=== PATIENT | female | born 1955 | race Caucasian/White ===

== ENCOUNTER 2018-07-13 14:44 | Inpatient (IN) | payer OTHER ==
[~2018-07-13] VITALS: Ht 160 cm; Wt 67.6 kg
[2018-07-13] MEDS ORDERED: OXYC-150 PO (16:59)
[2018-07-13] MEDS ORDERED: ALPR-623 PO (16:59)
[2018-07-13] MEDS ORDERED: CHLO25CA10 PO (16:59)
[2018-07-13] MEDS ORDERED: FLUT16SP2 BOTHNARES (16:59)
[2018-07-13] MEDS ORDERED: ESCI10TA54 PO (16:59)
[2018-07-13] MEDS ORDERED: oxyCODONE/APAP 10/325mg tablet PO PRN (17:15)
[2018-07-13] MEDS ORDERED: ondansetron 4mg rapidly disintigrating tab PO PRN (17:35)
[2018-07-13 17:47] VITALS: BP 138/93
[2018-07-13] MEDS ORDERED: acetaminophen 325mg tablet PO PRN (18:00)
[2018-07-13] MEDS ORDERED: magnesium hydroxide 30ml (MOM) UD suspension PO PRN (18:00)
[2018-07-13] MEDS ORDERED: mag hydrox/Alum hydrox/simeth 30ml oral suspension PO PRN (18:00)
[2018-07-13] MEDS ORDERED: SUMAtriptan 25 MG tablet PO PRN (18:20)
[2018-07-13] MEDS ORDERED: MAXALT PO PRN (18:25)
[2018-07-13] MEDS ORDERED: ALPRAZolam 0.5mg tablet PO ONE (18:30)
[2018-07-13] MEDS ORDERED: pneumococcal 23-VAL P-sac vacc 25 mcg/0.5ml vial IMVAC ONE (20:00)
[2018-07-13 20:47] VITALS: BP 137/94
[2018-07-13] MEDS: ALPRAZolam 0.25mg tablet PO SCH (20:55)
[2018-07-13] MEDS: oxyCODONE IR 5mg (immed. release) tablet PO PRN (20:56)
[2018-07-13] MEDS: fluticasone nasal spray 16GM bottle NS SCH (21:15)
[2018-07-13] MEDS: chlordiazePOXIDE 25mg capsule PO PRN (23:56)
[2018-07-14] MEDS: oxyCODONE IR 5mg (immed. release) tablet PO PRN ×2 (03:02→15:09)
[2018-07-14] MEDS: ALPRAZolam 0.25mg tablet PO SCH ×3 (07:41→21:14)
[2018-07-14] MEDS: fluticasone nasal spray 16GM bottle NS SCH ×2 (07:41→08:00)
[2018-07-14] MEDS: citalopram 20mg tablet PO SCH (07:41)
[2018-07-14] MEDS: duloxetine 30mg CAPSULE.DR PO SCH (07:42)
[2018-07-14 08:00] VITALS: BP 137/94
[2018-07-14] MEDS ORDERED: citalopram 20mg tablet PO SCH (08:00)
[2018-07-14 08:59] LABS: HEMOGLOBIN A1C 5.7 % (4.5-6.2)
[2018-07-14] MEDS: chlordiazePOXIDE 25mg capsule PO PRN (10:21)
[2018-07-14 11:00] LABS: CHOL/HDL RATIO 3.5 (0.00-4.99); CHOLESTEROL 197 MG/DL (0-200); HDL CHOLESTEROL 56 MG/DL (35-60); LDL CHOLESTEROL 123 MG/DL (50-100); TRIGLYCERIDES 85 MG/DL (20-135)
[2018-07-14] MEDS: SUMAtriptan 25 MG tablet PO PRN (12:11)
[2018-07-14] MEDS ORDERED: oxyCODONE IR 5mg (immed. release) tablet PO PRN (17:20)
[2018-07-14 19:00] VITALS: BP 129/72
[2018-07-14] MEDS: traZODone 50mg tablet PO SCH (21:14)
[2018-07-14] MEDS: oxyCODONE IR 5mg (immed. release) tablet PO SCH (23:15)
[2018-07-15] MEDS: oxyCODONE IR 5mg (immed. release) tablet PO SCH ×3 (01:23→20:41)
[2018-07-15] MEDS: fluticasone nasal spray 16GM bottle NS SCH ×2 (07:59→20:40)
[2018-07-15] MEDS: duloxetine 30mg CAPSULE.DR PO SCH (07:59)
[2018-07-15 08:00] VITALS: BP 117/73
[2018-07-15] MEDS: ALPRAZolam 0.25mg tablet PO SCH ×3 (08:00→20:40)
[2018-07-15] MEDS: citalopram 20mg tablet PO SCH (08:00)
[2018-07-15 19:00] VITALS: BP 129/80
[2018-07-15] MEDS: traZODone 50mg tablet PO SCH (20:40)
[2018-07-16] MEDS: cloNIDine 0.1 mg tablet PO PRN ×3 (03:45→21:07)
[2018-07-16] MEDS: oxyCODONE IR 5mg (immed. release) tablet PO PRN ×2 (05:54→22:27)
[2018-07-16] MEDS: duloxetine 30mg CAPSULE.DR PO SCH (07:51)
[2018-07-16] MEDS: fluticasone nasal spray 16GM bottle NS SCH ×2 (07:51→20:00)
[2018-07-16] MEDS: citalopram 20mg tablet PO SCH (07:51)
[2018-07-16] MEDS: ALPRAZolam 0.25mg tablet PO SCH ×3 (07:52→21:02)
[2018-07-16 08:00] VITALS: BP 100/65
[2018-07-16] MEDS: oxyCODONE IR 5mg (immed. release) tablet PO SCH ×3 (08:00→21:03)
[2018-07-16 19:00] VITALS: BP 106/69
[2018-07-16] MEDS: traZODone 50mg tablet PO SCH (21:02)
[2018-07-17] MEDS: ALPRAZolam 0.25mg tablet PO SCH ×2 (07:40→12:38)
[2018-07-17] MEDS: duloxetine 30mg CAPSULE.DR PO SCH (07:41)
[2018-07-17] MEDS: citalopram 20mg tablet PO SCH (07:41)
[2018-07-17] MEDS: cloNIDine 0.1 mg tablet PO PRN (07:41)
[2018-07-17] MEDS: oxyCODONE IR 5mg (immed. release) tablet PO SCH ×2 (07:45→20:51)
[2018-07-17 08:00] VITALS: BP 113/72
[2018-07-17] MEDS: fluticasone nasal spray 16GM bottle NS SCH ×2 (08:00→20:50)
[2018-07-17 19:55] VITALS: BP 117/56
[2018-07-17] MEDS: ALPRAZolam 0.5mg tablet PO SCH (20:50)
[2018-07-17] MEDS ORDERED: traZODone 50mg tablet PO SCH (21:00)
[2018-07-18] MEDS: hydrOXYzine 25 MG tablet PO PRN ×2 (00:27→23:14)
[2018-07-18 08:00] VITALS: BP 108/71
[2018-07-18] MEDS: oxyCODONE IR 5mg (immed. release) tablet PO SCH ×2 (08:00→20:59)
[2018-07-18] MEDS: ALPRAZolam 0.5mg tablet PO SCH ×2 (08:00→20:00)
[2018-07-18] MEDS: duloxetine 30mg CAPSULE.DR PO SCH (08:14)
[2018-07-18] MEDS: citalopram 20mg tablet PO SCH (08:17)
[2018-07-18] MEDS: fluticasone nasal spray 16GM bottle NS SCH ×2 (08:18→20:51)
[2018-07-18] MEDS: acetaminophen 325mg tablet PO PRN (12:19)
[2018-07-18] MEDS: ALPRAZolam 0.25mg tablet PO SCH (13:00)
[2018-07-18 19:55] VITALS: BP 138/89
[2018-07-18] MEDS ORDERED: traZODone 150mg tablet PO SCH (21:00)
[2018-07-19] MEDS: oxyCODONE IR 5mg (immed. release) tablet PO PRN (00:37)
[2018-07-19] MEDS: citalopram 20mg tablet PO SCH (07:41)
[2018-07-19] MEDS: duloxetine 30mg CAPSULE.DR PO SCH (07:41)
[2018-07-19 08:00] VITALS: BP 136/88
[2018-07-19] MEDS: oxyCODONE IR 5mg (immed. release) tablet PO SCH (08:00)
[2018-07-19] MEDS: ALPRAZolam 0.5mg tablet PO SCH (08:00)
[2018-07-19] MEDS: fluticasone nasal spray 16GM bottle NS SCH ×2 (08:00→20:48)
[2018-07-19] MEDS: acetaminophen 325mg tablet PO PRN ×2 (08:38→20:50)
[2018-07-19] MEDS: ALPRAZolam 0.25mg tablet PO SCH (13:00)
[2018-07-19] MEDS: SUMAtriptan 25 MG tablet PO PRN (14:32)
[2018-07-19 20:00] VITALS: BP 138/87
[2018-07-19 20:30] VITALS: BP 120/84
[2018-07-19] MEDS ORDERED: traZODone 50mg tablet PO SCH (21:00)
[2018-07-20] MEDS: fluticasone nasal spray 16GM bottle NS SCH ×2 (07:58→21:06)
[2018-07-20 07:59] VITALS: BP 126/84
[2018-07-20] MEDS: citalopram 20mg tablet PO SCH (07:59)
[2018-07-20] MEDS: duloxetine 30mg CAPSULE.DR PO SCH (07:59)
[2018-07-20] MEDS: acetaminophen 325mg tablet PO PRN ×2 (08:01→13:55)
[2018-07-20] MEDS: hydrOXYzine 25 MG tablet PO PRN (09:21)
[2018-07-20] MEDS ORDERED: lamoTRIgine 25mg tablet PO ONE (16:10)
[2018-07-20 20:13] VITALS: BP 142/82
[2018-07-20] MEDS: traZODone 50mg tablet PO PRN (21:06)
[2018-07-21] MEDS: hydrOXYzine 25 MG tablet PO PRN (05:54)
[2018-07-21] MEDS ORDERED: lamoTRIgine 25mg tablet PO SCH (08:00)
[2018-07-21] MEDS: citalopram 20mg tablet PO SCH (08:11)
[2018-07-21] MEDS: fluticasone nasal spray 16GM bottle NS SCH ×2 (08:11→21:13)
[2018-07-21] MEDS: duloxetine 30mg CAPSULE.DR PO SCH (08:11)
[2018-07-21 08:13] VITALS: BP 137/91
[2018-07-21] MEDS: acetaminophen 325mg tablet PO PRN ×2 (11:33→21:46)
[2018-07-21] MEDS: SUMAtriptan 25 MG tablet PO PRN (15:26)
[2018-07-21] MEDS: LIDOcaine 5% patch TP SCH (17:32)
[2018-07-21 19:00] VITALS: BP 147/88
[2018-07-21] MEDS ORDERED: diphenhydrAMINE 25mg capsule PO ONE (21:10)
[2018-07-21] MEDS: traZODone 50mg tablet PO PRN (21:13)
[2018-07-21 21:30] VITALS: BP 120/80
[2018-07-22] MEDS: acetaminophen 325mg tablet PO PRN (06:21)
[2018-07-22 07:42] VITALS: BP 146/98
[2018-07-22] MEDS: citalopram 20mg tablet PO SCH (08:09)
[2018-07-22] MEDS: duloxetine 30mg CAPSULE.DR PO SCH (08:09)
[2018-07-22] MEDS: fluticasone nasal spray 16GM bottle NS SCH ×2 (08:09→20:52)
[2018-07-22] MEDS: LIDOcaine 5% patch TP SCH ×2 (09:46→20:53)
[2018-07-22] MEDS: SUMAtriptan 25 MG tablet PO PRN (14:06)
[2018-07-22 19:00] VITALS: BP 157/91
[2018-07-22] MEDS: divalproex sodium 250mg tablet PO SCH (20:52)
[2018-07-22] MEDS: traZODone 50mg tablet PO PRN (21:00)
[2018-07-23] MEDS: acetaminophen 325mg tablet PO PRN ×2 (00:22→15:54)
[2018-07-23] MEDS: SUMAtriptan 25 MG tablet PO PRN ×3 (05:15→19:25)
[2018-07-23 08:00] VITALS: BP 145/93
[2018-07-23] MEDS: duloxetine 30mg CAPSULE.DR PO SCH (08:08)
[2018-07-23] MEDS: citalopram 20mg tablet PO SCH (08:08)
[2018-07-23] MEDS: divalproex sodium 250mg tablet PO SCH ×2 (08:08→20:34)
[2018-07-23] MEDS: fluticasone nasal spray 16GM bottle NS SCH ×2 (08:08→20:34)
[2018-07-23] MEDS: LIDOcaine 5% patch TP SCH ×2 (08:13→20:33)
[2018-07-23 19:00] VITALS: BP 135/93
[2018-07-23] MEDS: traZODone 50mg tablet PO PRN (20:33)
[2018-07-24] MEDS: SUMAtriptan 25 MG tablet PO PRN ×2 (05:45→20:23)
[2018-07-24] MEDS: divalproex sodium 250mg tablet PO SCH ×2 (07:52→20:24)
[2018-07-24] MEDS: fluticasone nasal spray 16GM bottle NS SCH ×2 (07:53→20:24)
[2018-07-24] MEDS: duloxetine 30mg CAPSULE.DR PO SCH (07:53)
[2018-07-24] MEDS: LIDOcaine 5% patch TP SCH (07:54)
[2018-07-24 08:00] VITALS: BP 137/92
[2018-07-24] MEDS: acetaminophen 325mg tablet PO PRN (13:11)
[2018-07-24] MEDS ORDERED: LIDOcaine 5% patch TP SCH (15:00)
[2018-07-24] MEDS ORDERED: CLON0.1T20 PO (16:18)
[2018-07-24] MEDS ORDERED: DIVA250T4 PO (16:18)
[2018-07-24] MEDS ORDERED: FLUT16SP18 NS (16:18)
[2018-07-24] MEDS ORDERED: TRAZ150T78 PO (16:18)
[2018-07-24] MEDS ORDERED: SUMA25TA9 PO (16:18)
[2018-07-24] MEDS ORDERED: DULO60CA64 PO (16:18)
[2018-07-24] MEDS ORDERED: LIDO700A47 TP (16:19)
[2018-07-24] MEDS ORDERED: ONDA4TAB12 PO (16:19)
[2018-07-24 19:57] VITALS: BP 143/87
[2018-07-24] MEDS: traZODone 50mg tablet PO PRN (20:23)
[2018-07-25 07:39] VITALS: BP 126/57
[2018-07-25] MEDS: duloxetine 30mg CAPSULE.DR PO SCH (08:03)
[2018-07-25] MEDS: fluticasone nasal spray 16GM bottle NS SCH (08:03)
[2018-07-25] MEDS: divalproex sodium 250mg tablet PO SCH (08:04)
[2018-07-25] MEDS: SUMAtriptan 25 MG tablet PO PRN (08:04)
[2018-07-25] MEDS ORDERED: LIDOcaine 5% patch TP SCH (08:15)
[2018-07-25] MEDS ORDERED: FLUT16SP2 BOTHNARES (09:58)
== END 2018-07-25 11:50 | disposition home or self-care (01) | DRG 885 ==
LOC: EDBD → ADULT MH 16:22
PROVIDERS: ADMIT Psychiatry & Neurology Psychiatry; ATTEND Psychiatry & Neurology Psychiatry
PROC: 3E02340 Introduction of Influenza Vaccine into Muscle, Percutaneous Approach (ICD-10-PCS; principal; 2018-07-13)
PROC: 3E0234Z Introduction of Serum, Toxoid and Vaccine into Muscle, Percutaneous Approach (ICD-10-PCS; 2018-07-13)
DX: F33.2 Major depressive disorder, recurrent severe without psychotic features (principal); R45.851 Suicidal ideations; F11.23 Opioid dependence with withdrawal; F13.20 Sedative, hypnotic or anxiolytic dependence, uncomplicated; E11.9 Type 2 diabetes mellitus without complications; J45.909 Unspecified asthma, uncomplicated; I10 Essential (primary) hypertension; B19.20 Unspecified viral hepatitis C without hepatic coma; F41.9 Anxiety disorder, unspecified; G43.909 Migraine, unspecified, not intractable, without status migrainosus; Z79.899 Other long term (current) drug therapy; Z23 Encounter for immunization; Z90.49 Acquired absence of other specified parts of digestive tract; Z88.8 Allergy status to other drugs, medicaments and biological substances; Z81.8 Family history of other mental and behavioral disorders
CPT/HCPCS: 36415; 80061; 83036; 87070; 90732; Q0163; Q0177; Q2037

== ENCOUNTER 2018-12-30 17:52 | Emergency (ER) | payer OTHER ==
[~2018-12-30] VITALS: Ht 160 cm; Wt 72.7 kg
[~2018-12-30 17:52] MED LIST: CLON0.1T20 PO; DIVA250T4 PO; DULO60CA64 PO; FLUT16SP18 NS; FLUT16SP2 BOTHNARES; LIDO700A47 TP; ONDA4TAB12 PO; SUMA25TA9 PO; TRAZ150T78 PO
[2018-12-30] MEDS ORDERED: LIDOcaine 1% 30ml preserv. free vial SQ STA (19:21)
[2018-12-30] MEDS ORDERED: LORazepam 2 mg/ml vial IM ONE (19:25)
[2018-12-30 22:52] VITALS: BP 136/86
== END 2018-12-30 22:53 | disposition home or self-care (01) ==
LOC: ER 17:53
DX: S21.011A Laceration without foreign body of right breast, initial encounter (principal); S60.042A Contusion of left ring finger without damage to nail, initial encounter; S60.051A Contusion of right little finger without damage to nail, initial encounter; S60.512A Abrasion of left hand, initial encounter; S60.511A Abrasion of right hand, initial encounter; Z60.2 Problems related to living alone; Z88.8 Allergy status to other drugs, medicaments and biological substances; Z79.899 Other long term (current) drug therapy; W01.198A Fall on same level from slipping, tripping and stumbling with subsequent striking against other object, initial encounter; Y93.89 Activity, other specified; Y92.090 Kitchen in other non-institutional residence as the place of occurrence of the external cause; Y99.8 Other external cause status
CPT/HCPCS: 12002; 73120; 96372; 99283; J2060; J3490

== ENCOUNTER 2019-01-09 12:23 | Emergency (ER) | payer OTHER ==
[~2019-01-09] VITALS: Ht 160 cm; Wt 68.0 kg
[2019-01-09 12:25] VITALS: BP 138/99
== END 2019-01-09 14:22 | disposition home or self-care (01) ==
LOC: ER 12:23
DX: S21.011D Laceration without foreign body of right breast, subsequent encounter (principal); Z48.02 Encounter for removal of sutures; Z60.2 Problems related to living alone; Z88.8 Allergy status to other drugs, medicaments and biological substances; Z79.899 Other long term (current) drug therapy; W25.XXXD Contact with sharp glass, subsequent encounter
CPT/HCPCS: 99284